=== PATIENT | male | born 1980 | race Caucasian/White ===

== ENCOUNTER 2024-08-06 16:27 | Emergency (ER) | payer OTHER ==
[~2024-08-06] VITALS: Ht 182.9 cm; Wt 80.0 kg
--- NOTE | 2024-08-06 16:58 | ED.PDOC ---
History of Present Illness HPI Comments 44 y/o M, with a Hx of HTN, EtOH-induced seizures, and polysubstance abuse, is BIBA for mental health complaint, today. Per EMS report, patient was brought from home after he called, endorsing on recent onset of suicidal ideations w/plan after he broke his EtOH sobriety 1x month ago and has been consuming he jere amounts of EtOH within the past 24 hours. Patient reported to EMS on last drink intake being 45x minutes prior to arrival on scene with 2/5th of whisky consumed. At time of assessment, patient reports being under heavy amounts of stress, lately, with recent divorce anniversary, lost of child custody, breaking up with his girlfriend, and mother dealing with her CA diagnosis. Patient also inquires for assistance with EtOH abuse. Patient also admits to Hx of tobacco and cocaine use, with latter being consumed, recently, 3x days ago. He denies having any tremors, vision or speech changes, nausea, vomiting, homicidal ideations, auditory or visual hallucinations, or other associated symptoms or modifiers at this time. Time Seen by MD: 16:40 Reviewed Notes: Nurses Notes, Medications, Allergies Allergies: Coded Allergies: Penicillins (Verified Allergy, Severe, 08/06/24) Information Source: Patient, Emergency Med Personnel Mode of Arrival: EMS Severity: Moderate Timing: Hours Duration: Since onset Prehospital treatment: 12 Lead EKG, [employer] Past Medical History PAST MEDICAL HISTORY: HTN, Seizures (EtOH-induced seizures) Surgical History: Denies all surgeries Family History Family History: Reviewed,noncontributory to illness, No family hx of DM, No family hx of Heart jason, No family hx of HTN, No family hx ofKidney jason, No family hx of Liver jason, No family hx of Lung jason, No family hx of Stroke, Family hx of Cancer Social History Smoker: Cigarettes Alcohol: Heavy Drugs: Cocaine Lives In: Home Constitutional: denies: chills, diaphoresis, fatigue, fever, malaise, sweats, weakness, others EENTM: denies: blurred vision, double vision, ear bleeding, ear discharge, ear drainage, ear pain, ear ringing, eye pain, eye redness, hearing loss, mouth pain, mouth swelling, nasal discharge, nose bleeding, nose congestion, nose pain, photophobia, tearing, throat pain, throat swelling, voice changes, others Respiratory: denies: cough, hemoptysis, orthopnea, SOB at rest, shortness of breath, SOB with excertion, stridor, wheezing, others Cardiovascular: denies: chest pain, dizzy spells, diaphoresis, Dyspnea on exertion, edema, irregular heart beat, left arm pain, lightheadedness, pa lpitations, PND, syncope, others Gastrointestinal: denies: abdomen distended, abdominal pain, blood streaked bowels, constipated, diarrhea, dysphagia, difficulty swallowing, hematemesis, melena, nausea, poor appetite, poor fluid intake, rectal bleeding, rectal pain, vomiting, others Genitourinary: denies: burning, dysuria, flank pain, frequency, hematuria, incontinence, penile discharge, penile sore, pain, testicle pain, testicle swelling, urgency, others Neurological: denies: dizziness, fainting, headache, left sided numbness, left sided weakness, numbness, paresthesia, pre-existing deficit, right sided numbness, right sided weakness, seizure, speech problems, tingling, tremors, weakness, others Musculoskeletal: denies: back pain, gout, joint pain, joint swelling, muscle pain, muscle stiffness, neck pain, others Integumetry: denies: bruises, change in color, change in hair/nails, dryness, laceration, lesions, lumps, rash, wounds, others Allergic/Immunocompromised: denies: Difficulty Healing, Frequent Infections, Hives, Itching, others Hematologic/Lymphatic: denies: anemia, blood clots, easy bleeding, easy br uising, swollen glands, others Endocrine: denies: excessive hunger, excessive sweating, excessive thirst, excessive urination, flushing, intolerance to cold, intolerance to heat, unexplained weight gain, unexplained weight loss, others Psychiatric: reports: suicidal; denies: anxiety, bipolar disorder, depression, hopeless, panic disorder, schizophrenia, sleepless, others All Other Systems: Reviewed and Negative Physical Exam General Appearance: Mild Distress HEENT: Normal ENT Inspection, Pharynx Normal, TMs Normal Neck: Full Range of Motion, Non-Tender, Normal, Normal Inspection Respiratory: Chest Non-Tender, Lungs Clear, No Accessory Muscle Use, No Respiratory Distress, Normal Breath Sounds Cardiovascular: No Edema, No JVD, No Murmur, No Gallop, Normal Peripheral Pulses, Regular Rate/Rhythm Breast Exam: Deferred Gastrointestinal: No Organomegaly, Non Tender, No Pulsatile Mass, Normal Bowel Sounds, Soft Genitalia: Deferred Pelvic: Deferred Rectal: Deferred Extremities: No calf tenderness, Normal capillary refill, Normal inspection, Normal range of motion, Non-tender, No pedal edema Musculoskeletal : Apperance: Normal Neurologic: Alert, hydraulic mechanic II-XII nml as Tested, No Motor Deficits, No Sensory Deficits, Other (Depressed mood) Cerebellar Function: Normal Reflexes: Normal Skin: Dry, Normal Color, Warm Lymphatic: No Adenopathy Was a procedure done? Was a procedure done?: No Differential Dx Considerations may include: suicidal ideations, depression, anxiety, EtOH abuse, EtOH dependency, hopelessness X-Ray, Labs, Meds, VS Vital Signs Date Time Temp Pulse Resp B/P (MAP) Pulse Ox O2 Delivery O2 Flow Rate FiO2 08/06/24 20:02 Room Air* 0 21 08/06/24 20:01 98.4 98 18 132/88 (103) 97 98.4 08/06/24 17:58 129 18 98 Room Air* 0 21 08/06/24 17:58 98.6 129 18 121/80 (94) 96 98.6 08/06/24 16:46 99.2 117 20 113/70 (84) 96 Lab Test 08/06/24 17:19 Range/Units Plasma/Serum Blood Alcohol 273.6 H <10 mg/dL Current Medications Medications (Trade) Dose Ordered Sig/Amari Route Start Time Stop Time Status Last Admin Sodium Chloride 1,000 ml @ 1,000 mls/hr Q1H ONCE IV 08/06/24 17:00 08/06/24 17:59 DC 08/06/24 17:57 IV Hep-Lock was established with the patient was given a 1 L bolus of normal saline The alcohol level is 273.6 The patient was alert and oriented The patient was still stating that he is suicidal The patient was considered to be medically cleared We did order a telemedicine psychiatry consult at this time We are signing the patient out to Time of 1ST Reevaluation: 17:10 Reevaluation 1ST: Unchanged Patient Education/Counseling: Diagnosis, Treatment, Prognosis Family Education/Counseling: No Family Present Departure 1 Departure Time of Disposition: 20:31 Impression: Primary Impression: Alcohol intoxication Qualified Codes: F10.920 - Alcohol use, unspecified with intoxication, uncomplicated Additional Impressions: Suicidal ideation Major depressive disorder Qualified Codes: F32.1 - Major depressive disorder, single episode, moderate Disposition: 30 STILL A PATIENT Condition: Fair Critical Care Note Critical Care Time?: No Stability Stability form required: No Heart Score Heart Score: Heart Score Response (Comments) Value History N/A 0 EKG N/A 0 Age N/A 0 Risk Factors N/A 0 Troponin N/A 0 Total 0 I personally scribed for DK PRETTY MD ([email or web address]) on 08/06/24 at 16:58. Electronically submitted by Byron Jaramillo ([email or web address]). DK PRETTY MD Aug 06, 2024 16:58
[2024-08-06] MEDS: SODIUM CHLORIDE 0.9% 1,000 ML IV ONE (17:57)
[2024-08-06 17:58] VITALS: PULSE 129; RESP 18; O2SAT 98
[2024-08-06] MEDS: LORazepam 2MG/ML-1ML VIAL IV ONE ×2 (20:45→23:31)
--- NOTE | 2024-08-07 00:23 | DVHINCON2 ---
Date of Service if different f: Aug 06, 2024 Time of Service: 23:54 Consult Consult Note PSYCHIATRY ED NEW CONSULT HPI: 44 yo pt with PPH of depression and ETOH use disorder presents to ED BIBA for safety, psychiatric stabilization and possible med initiation/optimization in setting of ETOH abuse, depression, and passive SI. Psychiatry consulted for safety evaluation and recommendations in context of current presentation Per pt, reports over past several weeks experiencing worsening depressed mood, hopelessness, helplessness, negative thoughts, isolation, loss of interest, decreased energy, poor sleep, amotivation and unspecified anxiety symptoms to include restlessness, racing/intrusive thoughts, and irritability. Also intermittent SI that are worsening with no plan/intent although has access to firearms at home. Reports some interference with daily functioning due to increased ETOH consumption. Reports primary stress as ongoing relationship strains with ex-, child custody issues, and financial strains. No overt manic, psychotic, cognitive, dissociative phenomena, panic, or somatic symptoms noted. Pt currently does have psychiatrist/therapist out in community via [facility]. Currently rx'd Sertraline and Buspar. Denies any hx of med noncompliance although has been self medicating mood symptoms with increased ETOH consumption, up to 2/5th whiskey/day for past several months, last use [employer]. Intermittent cocaine use, last used several weeks ago, does have long hx of ETOH dependency, previously in various drug tx programs with multiple relapses, hx of ETOH w/d seizures , two children with some contact, employed but furloughed, lives by self, pending custody issues, limited support system noted. Unknown trauma hx. Unknown FH. No acute medical issues although hx of ETOH w/d seizures (none since 09/2023), No recent head injuries, NKDA Does not have hx of suicide attempts, SIB/PSG, or One recent psych hospitalization at [place] for depression. Denies history of violence, unprovoked aggression, or assaultive behaviors. Some recent hx of anger outbursts, emotional dysregulation, and mood reactivity. Does have access to firearms. Currently endorses passive SI. Denies HI. MSE: General Appearance/Behavior: Alert and awake; appears stated age, well developed, fair grooming and hygiene; calm and cooperative, fair eye contact, no PMA/PMR Speech: coherent, rrr Thought Process: linear, logical, appears goal-directed Thought Content: Abnormal Thoughts and Perceptions: None Homicidality / Violent Thoughts: None Suicidality: passive SI Hallucinations: denies AVH Delusions: denies paranoia, persecutory, or grandiose delusions Obsessions /compulsions : None Judgment and Insight: marginally fair/questionable judgment with fair insight Mood & Affect: "depressed" with mood-congruent, somewhat constricted/restricted, appropriate Orientation: oriented to person, place, time Attention/Concentration: appears intact Memory: grossly intact Language: no unusual or inappropriate language Assessment: 44 yo pt with PPH of depression and ETOH use disorder presents to ED BIBA for safety, psychiatric stabilization and possible med initiation/optimization in setting of ETOH abuse, depression, and passive SI. Pt is currently expressing some SI with moderate interference in daily functioning in setting of several recent acute life stressors (see HPI) in addition to increased ETOH consumption. Limited protective factors presently. Some recent hx of anger outbursts, emotional dysregulation, and mood reactivity. Pt agrees to talk with staff instead of acting on any suicidal feelings while in ED. Thus, acute risk is moderate and hence is appropriate for inpatient psychiatry admission. Pt will benefit from inpatient psych admission for safety, psychiatric stabilization and possible medication initiation/ optimization. Pt willing to transfer to inpt psych hospitalization voluntarily Primary Diagnosis: Adjustment disorder with depressed mood and anxiety. Depressive disorder unspecified. ETOH use disorder, moderate. R/o MDD, moderate. Recommend vol transfer to inpt psych facility for higher level of care - of note, [facility] pt 1:1 sitter is recommended Recommend continuation of outpt med regimen - sertraline 100 mg qd and Buspar 15 mg bid Risks/benefits/alternative treatments discussed, informed consent provided by pt If patient later refuses voluntary hospitalization or if no voluntary beds are available, please reconsult telepsych services to evaluate for 5150 hold. Reconsult telepsych services if pt requests to be discharged from ED prior to transfer Pt verbalized understanding and is receptive to above tx plan This case was discussed with ED nurse/provider and all parties in agreement with above tx plan Asaf Greenfield MD Plan discussed with: Patient ASAF GREENFIELD MD Aug 07, 2024 00:23
[2024-08-07] MEDS: LORazepam 2MG/ML-1ML VIAL IV ONE ×2 (02:18→06:29)
[2024-08-07] MEDS: chlordiazePOXIDE HCL 5 MG CAP PO ONE (07:28)
--- NOTE | 2024-08-07 11:23 | DVHINCON2 ---
Date of Service if different f: Aug 07, 2024 Consultation ([facility]) Progress: Somewhat better Labs Laboratory Tests Test 08/06/24 17:19 Plasma/Serum Blood Alcohol 273.6 mg/dL (<10) Appetite: Fair Appearance: Stated age, Groomed, Clean Psychomotor activity: WNL Behavioral: Cooperative Eye contact: Appropriate Speech: WNL Affect: Appropriate Mood: Anxious Thought processes: Linear/Goal-directed Thought content: WNL Suicidal ideations: Absent Homicidal ideations: Absent Orientation: Person, Place, Time, Situation Memory intact: Recent Intellect: Average Abstractability: WNL Concentration: Adequate Attention: Adequate Judgement: WNL Insight: Fair Vitals Vital Signs Date Time Temp Pulse Resp B/P (MAP) Pulse Ox O2 Delivery O2 Flow Rate FiO2 08/07/24 02:10 119 18 128/88 (101) 97 08/06/24 20:02 Room Air* 0 21 08/06/24 20:01 98.4 98.4 Medication adjusted: No Diagnosis: MDD, Alcohol abuse Plan : Pt denies Si/Hi. He has outpatient connection with psychiatrist and therapist He also reports [facility] will assist with rehab programs He may continue his psychotropic medications at home. Discussed returning to Ed or calling 911 if suicidal/homicidal ideation, he verbalized understanding Recommend discharge home to follow up with outpatient at [facility]. History of Present Illness Reason for Consult : Re-evaluation and disposition Patient had initial telepsychiatry evaluation last night with recommendation for voluntary psych transfer for passive SI HPI : This is 44-year-old male who presented to ED via ambulance after calling 911. Patient evaluated via telepsychiatry, he reports today feeling better. He reports self-medicating and drinking whiskey about 2 5ths per day. He was intoxicated and later withdrawing on prior evaluation, but reports to be doing much better now and would like to go home. He is future oriented, as he is looking forward to visiting mom who has cancer, care for his sick cat, and has several interviews lined up. He also wants to get help with starting rehab and plans to call his sponsor. He denies past suicide attempts. He presently denies suicidal/homicidal ideation with intent or plan. He denies auditory/visual hallucinations or paranoia. CROW BARRERA DNP Aug 07, 2024 11:23
[2024-08-07 14:54] VITALS: BP 130/100; PULSE 119; RESP 17; TEMP 97.7; O2SAT 97
== END 2024-08-07 14:56 | disposition still patient (30) ==
LOC: ER 16:27 → EDBD 16:27 → ER 08-07 14:56
DX: F10.129 Alcohol abuse with intoxication, unspecified (principal); R45.851 Suicidal ideations; I10 Essential (primary) hypertension; F32.1 Major depressive disorder, single episode, moderate; F17.210 Nicotine dependence, cigarettes, uncomplicated; Z88.0 Allergy status to penicillin
CPT/HCPCS: 36415; 80320; 96361; 96374; 96376; 99285; J2060